=== PATIENT | female | born 1985 | race Caucasian/White ===

== ENCOUNTER 2016-10-31 01:20 | Emergency (ER) | payer MEDICAID ==
[~2016-10-31] VITALS: Ht 154.9 cm; Wt 59.0 kg
--- NOTE | 2016-10-31 01:20 | NUR ---
PT BIB [facility], PREBOOK. TAKEN TO OF
[2016-10-31 01:31] VITALS: BP 131/88
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
--- NOTE | 2016-10-31 01:39 | NUR ---
Dr. Willett evaluating patient
[2016-10-31 02:05] VITALS: BP 131/88
--- NOTE | 2016-10-31 02:06 | NUR ---
PATIENT BIB [employer]. PATIENT EXAMINED BY DR. LOPEZ. PATIENT MEDICALLY CLEARED AND RELEASED IN CUSTODY IN STABLE CONDITION. ORIGINAL PRE-BOOK FORM GIVEN TO OFFICER MCKINLEY.
== END 2016-10-31 02:06 ==
LOC: MED 01:20
DX: Z02.89 Encounter for other administrative examinations (principal); R03.0 Elevated blood-pressure reading, without diagnosis of hypertension